=== PATIENT | male | born 1935 | race Asian ===

== ENCOUNTER 2016-11-21 09:34 | Outpatient (CLI) | payer MEDICARE, OTHER | END 2016-11-21 09:35 | disposition home or self-care (01) | LOC: SC 09:34 | PROVIDERS: ATTEND Specialist | DX: G47.10 Hypersomnia, unspecified (principal); R06.83 Snoring; G47.8 Other sleep disorders | CPT/HCPCS: 99204; G0463; 99212 ==

== ENCOUNTER 2016-12-13 22:12 | Outpatient (CLI) | payer MEDICARE, OTHER | END 2016-12-13 22:13 | disposition home or self-care (01) | LOC: SC 22:12 | PROVIDERS: ATTEND Specialist | DX: G47.33 Obstructive sleep apnea (adult) (pediatric) (principal) | CPT/HCPCS: 95810 ==

== ENCOUNTER 2017-01-23 09:23 | Outpatient (CLI) | payer MEDICARE, OTHER | END 2017-01-23 09:24 | disposition home or self-care (01) | LOC: SC 09:23 | PROVIDERS: ATTEND Specialist | DX: G47.33 Obstructive sleep apnea (adult) (pediatric) (principal) | CPT/HCPCS: 99214; G0463; 99212 ==

== ENCOUNTER 2017-03-02 21:03 | Outpatient (CLI) | payer MEDICARE, OTHER | END 2017-03-02 21:04 | disposition home or self-care (01) | LOC: SC 21:03 | PROVIDERS: ATTEND Specialist | DX: G47.33 Obstructive sleep apnea (adult) (pediatric) (principal) | CPT/HCPCS: 95811 ==

== ENCOUNTER 2017-03-28 09:02 | Outpatient (CLI) | payer MEDICARE, OTHER | END 2017-03-28 09:03 | disposition home or self-care (01) | LOC: SC 09:02 | PROVIDERS: ATTEND Nurse Practitioner Family | DX: G47.33 Obstructive sleep apnea (adult) (pediatric) (principal); I49.9 Cardiac arrhythmia, unspecified | CPT/HCPCS: 99214; G0463; 99212 ==

== ENCOUNTER 2017-05-16 10:41 | Outpatient (CLI) | payer MEDICARE, OTHER | END 2017-05-16 10:42 | disposition home or self-care (01) | LOC: SC 10:41 | PROVIDERS: ATTEND Nurse Practitioner Family | DX: G47.33 Obstructive sleep apnea (adult) (pediatric) (principal) | CPT/HCPCS: 99214; G0463; 99212 ==

== ENCOUNTER 2017-08-14 10:36 | Outpatient (CLI) | payer MEDICARE, OTHER | END 2017-08-14 10:37 | disposition home or self-care (01) | LOC: SC 10:36 | PROVIDERS: ATTEND Nurse Practitioner Family | DX: G47.33 Obstructive sleep apnea (adult) (pediatric) (principal) | CPT/HCPCS: 99214; G0463; 99212 ==

== ENCOUNTER 2018-03-12 15:29 | Outpatient (CLI) | payer MEDICARE, OTHER | END 2018-03-12 15:30 | disposition home or self-care (01) | LOC: SC 15:29 | PROVIDERS: ATTEND Nurse Practitioner Family | DX: G47.33 Obstructive sleep apnea (adult) (pediatric) (principal) | CPT/HCPCS: 99215; G0463; 99212 ==

== ENCOUNTER 2018-06-04 12:45 | Outpatient (CLI) | payer MEDICARE, OTHER | END 2018-06-04 12:46 | disposition home or self-care (01) | LOC: SC 12:45 | PROVIDERS: ATTEND Nurse Practitioner Family | DX: G47.33 Obstructive sleep apnea (adult) (pediatric) (principal); R03.1 Nonspecific low blood-pressure reading | CPT/HCPCS: 99215; G0463; 99212 ==

== ENCOUNTER 2018-07-08 13:39 | Outpatient (CLI) | payer MEDICARE, OTHER | END 2018-07-08 13:40 | disposition home or self-care (01) | LOC: SC 13:39 | PROVIDERS: ATTEND Nurse Practitioner Family | DX: G47.33 Obstructive sleep apnea (adult) (pediatric) (principal) | CPT/HCPCS: 99214; G0463; 99212 ==

== ENCOUNTER 2018-08-05 14:16 | Outpatient (CLI) | payer MEDICARE, OTHER | END 2018-08-05 14:17 | disposition home or self-care (01) | LOC: SC 14:16 | PROVIDERS: ATTEND Nurse Practitioner Family | DX: G47.33 Obstructive sleep apnea (adult) (pediatric) (principal); R53.83 Other fatigue | CPT/HCPCS: 99214; G0463; 99212 ==

== ENCOUNTER 2018-09-24 11:05 | Outpatient (CLI) | payer MEDICARE, OTHER | END 2018-09-24 11:06 | disposition home or self-care (01) | LOC: SC 11:05 | PROVIDERS: ATTEND Nurse Practitioner Family | DX: G47.33 Obstructive sleep apnea (adult) (pediatric) (principal); G47.00 Insomnia, unspecified | CPT/HCPCS: 99214; G0463; 99212 ==

== ENCOUNTER 2018-11-26 10:27 | Outpatient (CLI) | payer MEDICARE, OTHER | END 2018-11-26 10:28 | disposition home or self-care (01) | LOC: SC 10:27 | PROVIDERS: ATTEND Nurse Practitioner Family | DX: G47.33 Obstructive sleep apnea (adult) (pediatric) (principal) | CPT/HCPCS: 99214; G0463; 99212 ==

== ENCOUNTER 2020-03-24 12:42 | Outpatient (CLI) | payer MEDICARE, OTHER ==
--- NOTE | 2020-03-24 13:42 | SLEEP CARE CONSULTATION ---
Information from patient questionnaire entered by Olivia Puri. I have reviewed and concur with the information entered by Olivia Puri. This document represents the service I personally performed and the decisions made by me, Meka Young ARNP. History of Present Illness Service Date and Time: 03/24/2020 1242 Previous diagnosis: Severe, Obstructive Sleep Apnea-Hypopnea Syndrome AHI: 49.2 Reason for follow up: annual (Last seen 11/2018) Equipment type: BiPAP Equipment obtained from: [employer] (getting supplies as needed) Mask style: Full face (Dreamwear) Mask brand: Respironics Backup mask available: Yes (old mask) Last cushion change: 2 months Prior sleep studies: Yes Year and Where: 2016 [facility] Type of Sleep Study: Polysomnography HPI additional information: ELFEGO DUNHAM was diagnosed to have severe, AHI 49.2, obstructive sleep apnea-hypopnea syndrome and returned today for BiPAP therapy annual follow-up. CPAP Compliance Data - Data Reviewed with Patient Average duration of nightly device use: 9.5 hours Compliance rate %: 97.8 Current pressure setting (cmH2O): 16/12 Humidity settin Heated hose settin Average residual AHI: 17.2 Central apnea: 11.6 Obstructive apnea: 4.6 Hypopnea: 1.0 Average large leak: 25 minutes 50 secs Subjective Patient concerns: reports: mask leak noise, dry mouth, nose, throat (dry mouth). denies: aerophagia, mask discomfort, air blowing in eyes, condensation in mask/hose, nasal congestion, epistaxis, other Observed to snore while using device: No Current pressure setting perceived as: comfortable On therapy, patient: denies: sleeping better, awakening more refreshed, more rested overall, drowsiness while driving Initial [place] Sleepiness Scale score: 7 Current [place] Sleepiness Scale score: 8 Allergies and Home Medications Drug allergies reviewed: Yes (NKDA) Home medication list reviewed: Yes (no changes) Review of Systems Review of systems same as previous: Yes (no changes) Physical Exam Heart Rate: 48 O2 Saturation: 95 Height: 5 ft 11 in Weight: 186 lb Body Mass Index: 25.9 BMI Classification: Overweight Impression and Plan 1. Obstructive Sleep Apnea-Hypopnea Syndrome, severe, with good treatment compliance and poor apnea control with elevated residual AHI at 17.2. On BIPAP therapy, the patient does not feel he sleeps better sleep and his overall [place] sleepiness scale is 8. He thinks he sleeps better without the machine but cannot really tell me why except he feels the mask is sometimes too tight on his face. He is agreeable to continue use of BIPAP therapy. His central apnea index was found to be elevated at 11.6 and obstructive apnea index at 4.6 on his download today. I will reduce his pressure to 14/10 cm H2O to try and reduce his residual AHI. If we are not able to reduce this with office adjustments we may order a titration study to obtain an optimal pressure for treatment on BIPAP. He is to follow up in 1-2 months to check on his treatment efficacy. He voiced understanding and agreement with plan. Patient's apnea severity and rationale for treatment to reduce apnea, improve sleep quality and reduce cardiovascular and cerebrovascular events was reviewed. I also reviewed the benefit of consistent device use of CPAP for hypertension and depression. * Change BIPAP pressure to 14/10 cmH2O * Notify me if snoring with mask or feeling that the pressure is too much or too little * Attempt to lose weight * Call this office if any problems using CPAP * Return for follow up in 1-2 months, or sooner if concerns arise Counseling Topics: Spare mask, Weight loss health impact Visit Type: In Office Time Spent with Patient (minutes): 17 Provider Statement: I spent 100% of the Face to Face Visit with the patient with greater than 50% spent counseling the patient and coordination of care.
== END 2020-03-24 12:43 | disposition home or self-care (01) ==
LOC: SC 12:42
PROVIDERS: ATTEND Nurse Practitioner Family
DX: G47.33 Obstructive sleep apnea (adult) (pediatric) (principal); E66.3 Overweight; Z68.25 Body mass index [BMI] 25.0-25.9, adult
CPT/HCPCS: 99213; G0463; 99212

== ENCOUNTER 2020-05-11 12:25 | Outpatient (CLI) | payer MEDICARE, OTHER ==
--- NOTE | 2020-05-11 13:18 | SLEEP CARE CONSULTATION ---
Information from patient questionnaire entered by Brianna Laguna. I have reviewed and concur with the information entered by Brianna Laguna. This document represents the service I personally performed and the decisions made by , Meka Young ARNP. History of Present Illness Service Date and Time: 05/11/2020 1225 Previous diagnosis: Severe, Obstructive Sleep Apnea-Hypopnea Syndrome AHI: 49.2 (in 2017) Reason for follow up: other (6 week with pressure change) Equipment type: BiPAP Equipment obtained from: [employer] (getting supplies as needed) Mask style: Full face Mask brand: Respironics (Dreamwear) Backup mask available: Yes (old mask) Last cushion change: 6 weeks Prior sleep studies: Yes Year and Where: 2016 - [facility] Type of Sleep Study: Polysomnography HPI additional information: ELFEGO DUNHAM was diagnosed to have severe, AHI 49.2, obstructive sleep apnea-hypopnea syndrome and returned today for BIPAP therapy 6 week pressure change follow-up. CPAP Compliance Data - Data Reviewed with Patient Average duration of nightly device use: 10 hr 3 min Compliance rate %: 100 Current pressure setting (cmH2O): 14/10 Humidity settin Heated hose settin Average residual AHI: 13.6 Central apnea: 8.5 Obstructive apnea: 3.1 Hypopnea: 2.1 Average large leak: 1 hr 33 min Subjective Patient concerns: reports: mask discomfort, mask leak noise, dry mouth, nose, throat (dry mouth most mornings). denies: aerophagia, air blowing in eyes, condensation in mask/hose, nasal congestion, epistaxis Observed to snore while using device: No Current pressure setting perceived as: comfortable On therapy, patient: reports: sleeping better, awakening more refreshed, being more awake and alert during the day, more rested overall, other (mask interferes with sleep well). denies: drowsiness while driving Initial [place] Sleepiness Scale score: 7 (in 2017) Current [place] Sleepiness Scale score: 15 Allergies and Home Medications Drug allergies reviewed: Yes (NKDA) Home medication list reviewed: Yes (no changes) Review of Systems Review of systems same as previous: Yes (no changes) Physical Exam Heart Rate: 46 O2 Saturation: 97 Height: 5 ft 11 in Weight: 191 lb Body Mass Index: 26.6 BMI Classification: Overweight Impression and Plan 1. Obstructive Sleep Apnea-Hypopnea Syndrome, severe, with good treatment compliance and fair apnea control with moderate elevated residual AHI. On BIPAP therapy, the patient has better sleep quality and is more rested overall. The patients pressure will be changed to BIPAP 12/8 cmH20 for elevation of residual AHI because his residual CI is still elevated. Patient advised to contact me if pressure change is uncomfortable so that it can be adjusted. Goals for apnea control discussed. His mask feels uncomfortable at night so he feels it interferes with him sleeping well. He does not want to try a new mask even though I offered this. He does have dry mouth most mornings. Oral dryness can be reduced by adjusting humidity setting higher or heated hose lower or by adjusting both settings. Verbal instructions given on how to change humidity and heated hose settings with rationale explaining why to change. Patient advised that chronic oral dryness can affect dental health and advised to follow up with dentist. In addition, there are oral dryness products that can be used to reduce dryness such as Biotene products, Dry mouth rinse and Xylomelts. Patient to discuss best option with dentist. Patient's apnea severity and rationale for treatment to reduce apnea, improve sleep quality and reduce cardiovascular and cerebrovascular events was reviewed. I also reviewed the benefit of consistent device use of CPAP for hypertension and depression. * Change auto BIPAP pressure to 12/8 cmH2O * Notify me if snoring with mask or feeling that the pressure is too much or too little * Attempt to lose weight * Call this office if any problems using CPAP * Return for follow up in 1-2 months , or sooner if concerns arise Counseling Topics: Spare mask, Weight loss health impact Visit Type: In Office Time Spent with Patient (minutes): 19 Provider Statement: I spent 100% of the Face to Face Visit with the patient with greater than 50% spent counseling the patient and coordination of care.
== END 2020-05-11 12:26 | disposition home or self-care (01) ==
LOC: SC 12:25
PROVIDERS: ATTEND Nurse Practitioner Family
DX: G47.33 Obstructive sleep apnea (adult) (pediatric) (principal); E66.3 Overweight; Z68.26 Body mass index [BMI] 26.0-26.9, adult
CPT/HCPCS: 99213; G0463; 99212

== ENCOUNTER 2020-06-09 12:37 | Outpatient (CLI) | payer MEDICARE, OTHER ==
--- NOTE | 2020-06-09 13:16 | SLEEP CARE CONSULTATION ---
Information from patient questionnaire entered by Brianna Laguna. I have reviewed and concur with the information entered by Brianna Laguna. This document represents the service I personally performed and the decisions made by , Meka Young ARNP. History of Present Illness Service Date and Time: 06/09/2020 1237 Previous diagnosis: Severe, Obstructive Sleep Apnea-Hypopnea Syndrome AHI: 49.2 (in 2017) Reason for follow up: one month (with pressure change) Equipment type: BiPAP Equipment obtained from: [employer] (doing okay, has not ordered anything from them yet) Mask style: Full face Backup mask available: Yes (old mask) Last cushion change: unsure Prior sleep studies: Yes Year and Where: 2016 - [facility] Type of Sleep Study: Polysomnography HPI additional information: ELFEGO DUNHAM was diagnosed to have severe, AHI 49.2, obstructive sleep apnea-hypopnea syndrome and returned today for BIPAP therapy 1 month pressure change follow-up. CPAP Compliance Data - Data Reviewed with Patient Average duration of nightly device use: 10 hr 19 min Compliance rate %: 100 Current pressure setting (cmH2O): 12/8 Humidity settin Heated hose settin Average residual AHI: 9.5 Average large leak: 9 hr 9 min Subjective Patient concerns: reports: mask leak noise, dry mouth, nose, throat. denies: aerophagia, mask discomfort, air blowing in eyes, condensation in mask/hose, nasal congestion, epistaxis, other Observed to snore while using device: No Current pressure setting perceived as: comfortable On therapy, patient: reports: sleeping better, awakening more refreshed, being more awake and alert during the day, more rested overall. denies: drowsiness while driving Initial [place] Sleepiness Scale score: 7 (in 2017) Current [place] Sleepiness Scale score: 13 Allergies and Home Medications Drug allergies reviewed: Yes (nkda) Home medication list reviewed: Yes (No changes) Review of Systems Review of systems same as previous: Yes (no changes) Physical Exam Heart Rate: 51 O2 Saturation: 96 Height: 5 ft 11 in Weight: 185 lb Body Mass Index: 25.7 BMI Classification: Overweight Impression and Plan 1. Obstructive Sleep Apnea-Hypopnea Syndrome, severe, with excellent treatment compliance and fair apnea control with elevated residual AHI. On BIPAP therapy, the patient has better sleep quality and is more rested overall. The patients pressure will be changed to BIPAP 10/6 cmH20 for elevation of residual AHI. Patient advised to contact me if pressure change is uncomfortable so that it can be adjusted. Goals for apnea control discussed. Patient's apnea severity and rationale for treatment to reduce apnea, improve sleep quality and reduce cardiovascular and cerebrovascular events was reviewed. I also reviewed the benefit of consistent device use of BIPAP for hypertension and depression. * Change auto BIPAP pressure to 10/6 cmH2O * Notify me if snoring with mask or feeling that the pressure is too much or too little * Attempt to lose weight * Call this office if any problems using BIPAP * Return for follow up in 1-2 months, or sooner if concerns arise Counseling Topics: Spare mask, Weight loss health impact Visit Type: In Office Time Spent with Patient (minutes): 20 Provider Statement: I spent 100% of the Face to Face Visit with the patient with greater than 50% spent counseling the patient and coordination of care.
== END 2020-06-09 12:38 | disposition home or self-care (01) ==
LOC: SC 12:37
PROVIDERS: ATTEND Nurse Practitioner Family
DX: G47.33 Obstructive sleep apnea (adult) (pediatric) (principal); E66.3 Overweight; Z68.25 Body mass index [BMI] 25.0-25.9, adult
CPT/HCPCS: 99213; G0463; 99212

== ENCOUNTER 2020-08-11 12:48 | Outpatient (CLI) | payer MEDICARE, OTHER ==
--- NOTE | 2020-08-11 13:17 | SLEEP CARE CONSULTATION ---
Information from patient questionnaire entered by Brianna Laguna. I have reviewed and concur with the information entered by Brianna Laguna. This document represents the service I personally performed and the decisions made by , Meka Young ARNP. History of Present Illness Service Date and Time: 08/11/2020 1248 Previous diagnosis: Severe, Obstructive Sleep Apnea-Hypopnea Syndrome AHI: 49.2 (in 2017) Reason for follow up: other (2 month with pressure change) Equipment type: BiPAP Equipment obtained from: [employer] (doing okay, has not ordered anything from them yet) Mask style: Full face Backup mask available: Yes (old mask) Last cushion change: not sure Prior sleep studies: Yes Year and Where: 2016 - [facility] Type of Sleep Study: Polysomnography HPI additional information: ELFEGO DUNHAM was diagnosed to have severe, AHI 49.2, obstructive sleep apnea-hypopnea syndrome and returned today for BIPAP therapy 2 month pressure change follow-up. CPAP Compliance Data - Data Reviewed with Patient Average duration of nightly device use: 10 hr 42 min Compliance rate %: 100 (60 days) Current pressure setting (cmH2O): 12/6 Humidity settin Heated hose settin Average residual AHI: 15 Central apnea: 4.1 Obstructive apnea: 3.5 Hypopnea: 7.4 Average large leak: 3 hr 10 min Subjective Patient concerns: reports: mask leak noise, dry mouth, nose, throat (dry mouth; better without putting water in the chamber). denies: aerophagia, mask discomfort, air blowing in eyes, condensation in mask/hose, nasal congestion, epistaxis, other Observed to snore while using device: No Current pressure setting perceived as: comfortable On therapy, patient: reports: sleeping better, awakening more refreshed, being more awake and alert during the day, more rested overall. denies: drowsiness while driving Initial [place] Sleepiness Scale score: 7 (in 2017) Current [place] Sleepiness Scale score: 12 Allergies and Home Medications Home medication list reviewed: Yes (no changes) Review of Systems Review of systems same as previous: Yes (no changes) Physical Exam Heart Rate: 52 O2 Saturation: 93 Height: 5 ft 11 in Weight: 189 lb Body Mass Index: 26.3 BMI Classification: Overweight Impression and Plan 1. Obstructive Sleep Apnea-Hypopnea Syndrome, severe, with excellent treatment compliance and fair apnea control with an elevated residual AHI. On BIPAP therapy, the patient has better sleep quality and is more rested overall. The patients pressure will be changed to BIPAP 13/8 cmH20 for elevation of residual AHI. Patient advised to contact me if pressure change is uncomfortable so that it can be adjusted. Goals for apnea control discussed. He has nightly dry mouth. He states he has not been putting water in the humidity chamber and it seems to have improved. He would like to turn off the humidifier. Oral dryness can be reduced by adjusting humidity setting higher or heated hose lower or by adjusting both settings. Patient advised that chronic oral dryness can affect dental health and advised to follow up with dentist. Patient's apnea severity a nd rationale for treatment to reduce apnea, improve sleep quality and reduce cardiovascular and cerebrovascular events was reviewed. I also reviewed the benefit of consistent device use of CPAP for hypertension and depression. * Change auto BIPAP pressure to 13/8 cmH2O * Notify me if snoring with mask or feeling that the pressure is too much or too little * Attempt to lose weight * Call this office if any problems using BIPAP * Return for follow up in 1-2 months 6b, or sooner if concerns arise Counseling Topics: Spare mask, Weight loss health impact Visit Type: In Office Time Spent with Patient (minutes): 20 Provider Statement: I spent 100% of the Face to Face Visit with the patient with greater than 50% spent counseling the patient and coordination of care.
== END 2020-08-11 12:49 | disposition home or self-care (01) ==
LOC: SC 12:48
PROVIDERS: ATTEND Nurse Practitioner Family
DX: G47.33 Obstructive sleep apnea (adult) (pediatric) (principal); E66.3 Overweight; Z68.26 Body mass index [BMI] 26.0-26.9, adult
CPT/HCPCS: 99213; G0463; 99212

== ENCOUNTER 2020-10-05 12:48 | Outpatient (CLI) | payer MEDICARE, OTHER ==
--- NOTE | 2020-10-05 13:16 | SLEEP CARE CONSULTATION ---
Information from patient questionnaire entered by Brianna Laguna. I have reviewed and concur with the information entered by Brianna Laguna. This document represents the service I personally performed and the decisions made by , Meka Young ARNP. History of Present Illness Service Date and Time: 10/05/2020 1248 Previous diagnosis: Severe, Obstructive Sleep Apnea-Hypopnea Syndrome AHI: 49.2 (in 2017) Reason for follow up: other (2 month with pressure change) Equipment type: BiPAP Equipment obtained from: [employer] (getting supplies as needed) Mask style: Full face Backup mask available: Yes (old mask) Last cushion change: don't know Prior sleep studies: Yes Year and Where: 2016 - [facility] Type of Sleep Study: Polysomnography HPI additional information: ELFEGO DUNHAM was diagnosed to have severe, AHI 49.2, obstructive sleep apnea-hypopnea syndrome and returned today for BIPAP therapy 2 month with pressure change follow-up. CPAP Compliance Data - Data Reviewed with Patient Average duration of nightly device use: 10 hr 26 min Compliance rate %: 98.3 (60 days) Current pressure setting (cmH2O): 13/8 Humidity settin Heated hose settin Average residual AHI: 9.9 Central apnea: 0.2 Obstructive apnea: 0.6 Hypopnea: 9.1 Average large leak: 8 hr 7 min Subjective Patient concerns: reports: mask leak noise, dry mouth, nose, throat. denies: aerophagia, mask discomfort, air blowing in eyes, condensation in mask/hose, nasal congestion, epistaxis, other Observed to snore while using device: No Current pressure setting perceived as: comfortable On therapy, patient: reports: sleeping better, awakening more refreshed, being more awake and alert during the day, more rested overall. denies: drowsiness while driving Initial [place] Sleepiness Scale score: 7 (in 2017) Current [place] Sleepiness Scale score: 10 Allergies and Home Medications Home medication list reviewed: Yes (no changes) Review of Systems Review of systems same as previous: Yes (no changes) Physical Exam Heart Rate: 48 O2 Saturation: 97 Height: 5 ft 11 in Weight: 190 lb Body Mass Index: 26.4 BMI Classification: Overweight Impression and Plan 1. Obstructive Sleep Apnea-Hypopnea Syndrome, severe, with good treatment compliance and fair apnea control with elevated residual AHI. On BIPAP therapy, the patient has better sleep quality and is more rested overall. His residual is elevated but most of these are recorded as hypopneas. He is also having large leaks averaging just over 8 hours which may be affecting this. He has significant improvement of his apneas while appears mildly ineffective due to large leaks. He feels the current pressures are comfortable and he would like to keep pressures same. I will not make any changes today. He voiced understanding and agreement with plan. Patient's apnea severity and rationale for treatment to reduce apnea, improve sleep quality and reduce cardiovascular and cerebrovascular events was reviewed. I also reviewed the benefit of consistent device use of BIPAP for hypertension, and depression. * Continue BIPAP pressure at 13/8 cmH2O * Notify me if snoring with mask or feeling that the pressure is too much or too little * Attempt to lose weight * Call this office if any problems using CPAP * Return for follow up in 1 year, or sooner if concerns arise Counseling Topics: Spare mask, Weight loss health impact Visit Type: In Office Time Spent with Patient (minutes): 16 Provider Statement: I spent 100% of the Face to Face Visit with the patient with greater than 50% spent counseling the patient and coordination of care.
== END 2020-10-05 12:49 | disposition home or self-care (01) ==
LOC: SC 12:48
PROVIDERS: ATTEND Nurse Practitioner Family
DX: G47.33 Obstructive sleep apnea (adult) (pediatric) (principal); E66.3 Overweight; Z68.26 Body mass index [BMI] 26.0-26.9, adult
CPT/HCPCS: 99212; G0463

== ENCOUNTER 2022-08-15 14:51 | Outpatient (CLI) | payer MEDICARE, OTHER ==
--- NOTE | 2022-08-15 15:47 | SLEEP CARE CONSULTATION ---
Information from patient questionnaire entered by Devorah Fall. I have reviewed and concur with the information entered by Devorah Fall. This document represents the service I personally performed and the decisions made by me, Meka Young ARNP. History of Present Illness Service Date and Time: 08/15/2022 1451 Previous diagnosis: Severe, Obstructive Sleep Apnea-Hypopnea Syndrome AHI: 49.2 (in 2017) Reason for follow up: annual (LAST SEEN 10/05/20) Equipment type: BiPAP ([place] DREAMSTATION SD CARD NEEDED) Equipment obtained from: [email or web address] (has not gotten any supplies for a long time) Mask style: Full face Mask brand: Respironics (Dreamwear) Backup mask available: Yes (old mask) Last cushion change: 1 month Prior sleep studies: Yes Year and Where: 2016 - [facility] Type of Sleep Study: Polysomnography HPI additional information: ELFEGO DUNHAM was diagnosed to have severe, AHI 49.2, obstructive sleep apnea-hypopnea syndrome and returned today for BIPAP therapy annual follow-up. Sleep Study - Results Type of Sleep Study: Polysomnography Prior sleep studies: Yes Year and Where: 2016 [facility] CPAP Compliance Data - Data Reviewed with Patient Average duration of nightly device use: 10 hours 1 minutes Compliance rate %: 100 (30/30 days used) Current pressure setting (cmH2O): 13/8 Average residual AHI: 4.5 Central apnea: 2.1 Obstructive apnea: 1.5 Hypopnea: 0.9 Average large leak: 4 minutes 56 secs Subjective Patient concerns: reports: mask leak noise. denies: aerophagia, mask discomfort, air blowing in eyes, condensation in mask/hose, nasal congestion, dry mouth, nose, throat, epistaxis Observed to snore while using device: No Current pressure setting perceived as: comfortable On therapy, patient: reports: sleeping better, awakening more refreshed, being more awake and alert during the day, more rested overall. denies: drowsiness while driving Initial [place] Sleepiness Scale score: 7 (in 2017) Current [place] Sleepiness Scale score: 8 (08/15/22) Allergies and Home Medications Known drug allergies: No Drug allergies reviewed: Yes Home medication list reviewed: Yes (no changes) Review of Systems Review of systems same as previous: Yes (no changes) Physical Exam Vital signs obtained and entered by: DEVORAH Ortiz MA Blood Pressure: 110/60 (LEFT ARM) Cuff size: regular Heart Rate: 62 O2 Saturation: 94 Height: 5 ft 11 in Weight: 186 lb 3.2 oz Body Mass Index: 25.9 BMI Classification: Overweight Impression and Plan 1. Obstructive Sleep Apnea-Hypopnea Syndrome, severe, with good treatment compliance and good apnea control. On BIPAP therapy, the patient has better sleep quality and is more rested overall. He has a Dreamstation that is on the recall and he is still waiting for a replacement device. The patients BIPAP is over 5 years old and of reasonable use. Thus, the BIPAP will be updated. A DWO prescription will be made. Compliance guidelines for new device and follow up discussed. Patient's apnea severity and rationale for treatment to reduce apnea, improve sleep quality and reduce cardiovascular and cerebrovascular events was reviewed. I also reviewed the benefit of consistent device use of BIPAP for hypertension and depression. 2. Overweight, unspecified. Currently patients BMI is 25.9. Obesity increases the risk of apnea, BIPAP pressure requirements and overall health risks especially cardiovascular and diabetes. Thus patient is advised to lose weight. * Continue BIPAP pressure at 13/8 cmH2O * Update machine * Update supplies * Notify me if snoring with mask or feeling that the pressure is too much or too little * Attempt to lose weight * Call this office if any problems using CPAP * Return for follow up one month after he obtains new device or sooner if concerns arise Counseling Topics: Spare mask, Weight loss health impact Visit Type: In Office Time Spent with Patient (minutes): 23 Provider Statement: I spent 100% of the Face to Face Visit with the patient with greater than 50% spent counseling the patient and coordination of care.
[2022-08-15 15:55] VITALS: BP 110/60
== END 2022-08-15 14:52 | disposition home or self-care (01) ==
LOC: SC 14:51
PROVIDERS: ATTEND Nurse Practitioner Family
DX: G47.33 Obstructive sleep apnea (adult) (pediatric) (principal); E66.3 Overweight; Z68.25 Body mass index [BMI] 25.0-25.9, adult
CPT/HCPCS: 99213; G0463; 99212

== ENCOUNTER 2023-07-27 10:53 | Outpatient (CLI) | payer MEDICARE, OTHER | END 2023-07-27 23:59 | disposition short-term general hospital (02) | LOC: EMS 10:53 | DX: I48.91 Unspecified atrial fibrillation (principal); R13.10 Dysphagia, unspecified | CPT/HCPCS: A0425; A0429; A0888 ==